=== PATIENT | male | born 1960 | race Caucasian/White ===

== ENCOUNTER 2016-11-25 15:48 | Outpatient (CLI) | END 2016-11-25 15:49 | disposition home or self-care (01) | LOC: AMBL 15:48 | PROVIDERS: ATTEND Emergency Medicine | DX: M25.551 Pain in right hip (principal); M79.604 Pain in right leg; R51 Headache; M54.5 Low back pain; S50.812A Abrasion of left forearm, initial encounter; S50.811A Abrasion of right forearm, initial encounter; S80.212A Abrasion, left knee, initial encounter; S80.211A Abrasion, right knee, initial encounter; S60.511A Abrasion of right hand, initial encounter; S60.512A Abrasion of left hand, initial encounter; S01.91XA Laceration without foreign body of unspecified part of head, initial encounter; V29.9XXA Motorcycle rider (driver) (passenger) injured in unspecified traffic accident, initial encounter ==